=== PATIENT | female | born 1970 | race African-American/Black ===

== ENCOUNTER 2021-05-28 11:55 | Emergency (ER) | payer MEDICARE, OTHER, SELFPAY ==
[~2021-05-28] VITALS: Ht 180.3 cm; Wt 139.7 kg
[~2021-05-28 11:55] MED LIST: BUPR300T55 PO; CLONIPIN PO; DEPAKOTE PO; GEODON PO; OLAN15TA3 PO
[2021-05-28 12:00] VITALS: BP_SYST 128
[2021-05-28] MEDS ORDERED: LORazepam 2 MG/ML VIAL IVP ONE (12:30)
[2021-05-28] MEDS ORDERED: NACL 0.9% 1,000 ML IV ONE ×2 (12:30→13:45)
[2021-05-28] MEDS ORDERED: ACETAMINOPHEN 325 MG TABLET PO ONE (13:00)
[2021-05-28 13:12] LABS: BASOPHILS % (AUTO) 0.6 % (0.0-2.0); EOSINOPHILS % (AUTO) 0.9 % (0.0-4.0); HEMATOCRIT 38.9 % (36-48); HEMOGLOBIN 13.1 g/dL (12.0-16.0); LYMPHOCYTES # (AUTO) 1.1 K/uL (1.0-5.5); LYMPHOCYTES % (AUTO) 22.2 % (20.5-51.5); MEAN CORPUSCULAR HEMOGLOBIN 30 pg (27-31); MEAN CORPUSCULAR HGB CONC 34 % (32-36); MEAN CORPUSCULAR VOLUME 90 fL (79.0-98.0); MONOCYTES # (AUTO) 0.3 K/uL (0.0-1.0); MONOCYTES % (AUTO) 5.4 % (1.7-9.3); NEUTROPHILS # (AUTO) 3.5 K/uL (1.8-7.7); NEUTROPHILS % (AUTO) 70.9 % (40.0-70.0); PLATELET COUNT (AUTO) 228 K/uL (130-430); RED BLOOD CELL COUNT(AUTO) 4.32 MIL/uL (4.2-6.2); RED CELL DISTRIBUTION WIDTH 14.4 % (9.0-15.0)
[2021-05-28 13:15] LABS: BILIRUBIN,URINE NEGATIVE (NEGATIVE); BLOOD, URINE 1+ (NEGATIVE); CLARITY/URINE SL CLOUDY (CLEAR); COLOR,URINE YELLOW (YELLOW); GLUCOSE,URINE NEGATIVE (NEGATIVE); KETONES,URINE TRACE (NEGATIVE); LEUKOCYTE ESTERASE ,URINE NEGATIVE (NEGATIVE); NITRITE, URINE NEGATIVE (NEGATIVE); PROTEIN URINE NEGATIVE (NEGATIVE); UROBILINOGEN,URINE 0.2 (0.2-1.0)
[2021-05-28 13:16] LABS: ANION GAP 12 (5-15); CALCIUM 9.1 mg/dL (8.4-11.0); CHLORIDE 105 mmol/L (98-107); CREATININE 1.34 mg/dL (0.55-1.30); GLUCOSE 135 mg/dL (70-99); POTASSIUM 3.7 mmol/L (3.5-5.1); SODIUM SERUM 140 mmol/L (136-145); UREA NITROGEN, BLOOD 10 mg/dL (8-21)
[2021-05-28 13:20] LABS: GFR AFRICAN AMERICAN 54 mL/min (>90)
[2021-05-28 13:21] LABS: ACETAMINOPHEN < 1 ug/mL (1-30)
[2021-05-28 13:22] LABS: ALANINE AMINOTRANSFERASE 15 U/L (12-78); ALBUMIN 3.5 g/dL (3.4-4.8); ASPARTATE AMINOTRANSFERASE 18 U/L (10-37); TOTAL BILIRUBIN 0.3 mg/dL (0.0-1.0)
[2021-05-28 13:23] LABS: ALCOHOL, BLOOD < 3 mg/dL (<10)
[2021-05-28 13:28] LABS: BARBITURATE, URINE NEGATIVE (NEG <=200); BENZODIAZEPINE, URINE POSITIVE (NEG <=150); CANNABINOID, URINE NEGATIVE (NEG <=50); COCAINE, URINE NEGATIVE (NEG <=150); METHAMPHETAMINES SCREEN,URINE NEGATIVE (NEG <=500); OPIATE, URINE NEGATIVE (NEG <=100); PHENCYCLIDINE SCREEN,URINE NEGATIVE (NEG <=25); UR TRICYCLIC ANTIDEPRESSANTS NEGATIVE (NEG <=300); URINE AMPHETAMINE NEGATIVE (NEG <=500); URINE METHADONE NEGATIVE (NEG <=200); URINE OXYCODONE SCREEN NEGATIVE (NEG <=100); URINE PROPOXYPHENE SCREEN NEGATIVE (NEG <=300)
[2021-05-28 13:35] LABS: BACTERIA,URINE FEW /HPF (None Seen); WBC,URINE 0-3 /HPF (0-3)
[2021-05-28 13:46] LABS: CKMB RELATIVE INDEX 0.4 (0.0-2.9); CREATINE KINASE MB 1.1 ng/mL (0-3.6)
[2021-05-28] MEDS ORDERED: IBUP-1969 PO (15:04)
[2021-05-28 15:55] VITALS: BP_SYST 128
== END 2021-05-28 15:55 | disposition home or self-care (01) ==
LOC: SED 11:55
DX: F41.9 Anxiety disorder, unspecified (principal); R00.0 Tachycardia, unspecified; I10 Essential (primary) hypertension; F32.9 Major depressive disorder, single episode, unspecified; F20.9 Schizophrenia, unspecified; Z79.899 Other long term (current) drug therapy; Z20.822 Contact with and (suspected) exposure to COVID-19
CPT/HCPCS: 36415; 71045; 80053; 80307; 81000; 82550; 82553; 83605; 84484; 85025; 87040; 87426; 93005; 96361; 96374; 99285; G0480; J2060; J7030; G0481; G0482

== ENCOUNTER 2022-11-02 17:05 | Emergency (ER) | payer MEDICARE, OTHER ==
[~2022-11-02] VITALS: Ht 180.3 cm; Wt 126.1 kg
[~2022-11-02 17:05] MED LIST changes: +IBUP-1969 PO
[2022-11-02 17:21] VITALS: BP_SYST 142
[2022-11-02] MEDS ORDERED: FLOEARD EACH EYE (19:53)
[2022-11-02] MEDS ORDERED: CLOT24CR2 TP (19:53)
[2022-11-02] MEDS ORDERED: FLUT16SP16 NS (19:53)
--- NOTE | 2022-11-02 20:03 | NUR ---
Patient given written and verbal discharge instructions and verbalizes understanding. ER MD Licea discussed with patient the results and treatment provided. Patient in stable condition. ID arm band removed. Rx's sent to preferred pharmacy. Patient educated on pain management and to follow up with PMD. Pain Scale 0/10. Opportunity for questions provided and answered. Medication side effect fact sheet provided.
[2022-11-02] MEDS ORDERED: NITR-85 PO (20:04)
[2022-11-02 20:05] VITALS: BP_SYST 142
--- NOTE | 2022-11-03 00:11 | NUR ---
Note undone in EDM - 11/03/22 at 0012 by [email or web address] Patient given written and verbal discharge instructions and verbalizes understanding. ER MD Licea discussed with patient the results and treatment provided. Patient in stable condition. ID arm band removed. Rx's sent to preferred pharmacy. Patient educated on pain management and to follow up with PMD. Pain Scale 0/10 Opportunity for questions provided and answered. Medication side effect fact sheet provided.
== END 2022-11-02 20:03 | disposition home or self-care (01) ==
LOC: SED 17:05
DX: J01.90 Acute sinusitis, unspecified (principal); R09.81 Nasal congestion; R30.0 Dysuria; I10 Essential (primary) hypertension; Z79.899 Other long term (current) drug therapy
CPT/HCPCS: 81025; 99283

== ENCOUNTER 2023-08-05 19:14 | Emergency (ER) | payer MEDICARE, OTHER ==
[~2023-08-05] VITALS: Ht 180.3 cm; Wt 131.1 kg
[~2023-08-05 19:14] MED LIST changes: +CLOT24CR2 TP; +FLOEARD EACH EYE; +FLUT16SP16 NS; +NITR-85 PO
[2023-08-05 19:30] VITALS: BP_SYST 148; PULSE 90; RESP 16; TEMP 97.9; O2SAT 96
[2023-08-05 21:20] LABS: BILIRUBIN,URINE NEGATIVE (NEGATIVE); BLOOD, URINE NEGATIVE (NEGATIVE); CLARITY/URINE Clear (CLEAR); COLOR,URINE YELLOW (YELLOW); GLUCOSE,URINE NEGATIVE (NEGATIVE); KETONES,URINE NEGATIVE (NEGATIVE); LEUKOCYTE ESTERASE ,URINE NEGATIVE (NEGATIVE); NITRITE, URINE NEGATIVE (NEGATIVE); PROTEIN URINE NEGATIVE (NEGATIVE); UROBILINOGEN,URINE 0.2 (0.2-1.0)
[2023-08-05] MEDS ORDERED: DIF100 PO (22:41)
[2023-08-05] MEDS ORDERED: NITR-85 PO (22:41)
[2023-08-05 23:00] VITALS: BP_SYST 145; PULSE 85; RESP 16; TEMP 97.3; O2SAT 100
== END 2023-08-05 22:59 | disposition home or self-care (01) ==
LOC: SED 19:14
DX: N39.0 Urinary tract infection, site not specified (principal); R30.9 Painful micturition, unspecified; R10.30 Lower abdominal pain, unspecified; I10 Essential (primary) hypertension; Z79.899 Other long term (current) drug therapy
CPT/HCPCS: 81003; 99283

== ENCOUNTER 2023-11-14 17:08 | Inpatient (IN) | payer MEDICARE, OTHER ==
[~2023-11-14] VITALS: Ht 170.2 cm; Wt 162.6 kg
[~2023-11-14 17:08] MED LIST changes: +DIF100 PO
[2023-11-14 17:18] VITALS: BP_SYST 117; PULSE 101; RESP 20; TEMP 98.1; O2SAT 95
[2023-11-14] MEDS ORDERED: IPRATROPIUM/ALBUTEROL SULFATE 3 ML AMPUL.NEB (DUONEB) INH ONE (20:00)
[2023-11-14] MEDS ORDERED: methylPREDNISolone SOD SUCC/PF 62.5 MG/ML VIAL IM ONE (20:00)
[2023-11-14 21:07] LABS: BASOPHILS % (AUTO) 0.7 % (0.0-2.0); EOSINOPHILS # (AUTO) 0.4 K/uL (0.0-0.4); EOSINOPHILS % (AUTO) 6.3 % (0.0-4.0); HEMATOCRIT 37.4 % (36-48); HEMOGLOBIN 12.5 g/dL (12.0-16.0); LYMPHOCYTES # (AUTO) 1.7 K/uL (1.0-5.5); LYMPHOCYTES % (AUTO) 26.1 % (20.5-51.5); MEAN CORPUSCULAR HEMOGLOBIN 30 pg (27-31); MEAN CORPUSCULAR HGB CONC 34 % (32-36); MEAN CORPUSCULAR VOLUME 90 fL (79.0-98.0); MONOCYTES # (AUTO) 0.4 K/uL (0.0-1.0); MONOCYTES % (AUTO) 6.2 % (1.7-9.3); NEUTROPHILS # (AUTO) 3.9 K/uL (1.8-7.7); NEUTROPHILS % (AUTO) 60.7 % (40.0-70.0); PLATELET COUNT (AUTO) 245 K/uL (130-430); RED BLOOD CELL COUNT(AUTO) 4.16 MIL/uL (4.2-6.2); RED CELL DISTRIBUTION WIDTH 15.9 % (9.0-15.0); WHITE BLOOD COUNT (AUTO) 6.5 K/uL (4.8-10.8)
[2023-11-14 21:13] LABS: PROTHROMBIN TIME 10.5 SECS (9.5-12.5)
[2023-11-14 21:14] LABS: ANION GAP 9 (5-15); CALCIUM 9.6 mg/dL (8.4-11.0); CARBON DIOXIDE 27 mmol/L (23-29); CHLORIDE 102 mmol/L (98-107); CREATININE 1.05 mg/dL (0.55-1.30); GFR AFRICAN AMERICAN 70 mL/min (>90); GFR NON AFRICAN-AMERICAN 58 mL/min (>90); GLUCOSE 100 mg/dL (74-106); POTASSIUM 3.7 mmol/L (3.5-5.1); SODIUM SERUM 138 mmol/L (136-145); UREA NITROGEN, BLOOD 13 mg/dL (8-21)
[2023-11-14 21:16] LABS: BILIRUBIN,URINE NEGATIVE (NEGATIVE); BLOOD, URINE NEGATIVE (NEGATIVE); CLARITY/URINE CLEAR (CLEAR); COLOR,URINE YELLOW (YELLOW); GLUCOSE,URINE NEGATIVE (NEGATIVE); KETONES,URINE NEGATIVE (NEGATIVE); LEUKOCYTE ESTERASE ,URINE NEGATIVE (NEGATIVE); NITRITE, URINE NEGATIVE (NEGATIVE); PH,URINE 7.5 (5.0-8.0); PROTEIN URINE NEGATIVE (NEGATIVE); UROBILINOGEN,URINE 0.2 (0.2-1.0)
[2023-11-14 21:22] LABS: LIPASE 20 U/L (16-77)
[2023-11-14] MEDS ORDERED: ASPIRIN 325 MG TABLET (ECOTRIN) PO ONE ×2 (21:45)
[2023-11-14] MEDS ORDERED: methylPREDNISolone SOD SUCC/PF 62.5 MG/ML VIAL ONE (23:14)
[2023-11-15] MEDS ORDERED: BUPR-120 PO (00:23)
[2023-11-15] MEDS ORDERED: GEO20 PO (00:23)
[2023-11-15] MEDS ORDERED: FURO-150 PO (00:23)
[2023-11-15] MEDS ORDERED: DIVA-74 PO (00:23)
[2023-11-15] MEDS ORDERED: CLON0.5T4 PO (00:23)
[2023-11-15] MEDS ORDERED: ILOP4TAB2 PO (00:23)
[2023-11-15] MEDS ORDERED: iohexoL 350 mgI/mL, 100 ML INFUS..BTL IV ONE (02:21)
[2023-11-15] MEDS ORDERED: HYDROcodone/ACETAMIN 5-325 MG TAB (NORCO/ VICODIN) PO PRN (10:00)
[2023-11-15] MEDS ORDERED: clonazePAM 0.5 MG TABLET PO PRN (10:00)
[2023-11-15] MEDS ORDERED: FUROSEMIDE 20 MG TABLET PO SCH (10:00)
[2023-11-15] MEDS ORDERED: HYDROcodone/ACETAMIN 10-325 MG TAB PO PRN (10:00)
[2023-11-15] MEDS ORDERED: NALOXONE HCL 0.4 MG/ML AMP (NARCAN) IVP PRN ×2 (10:00)
[2023-11-15] MEDS ORDERED: LORazepam 2 MG/ML VIAL IVP PRN (10:00)
[2023-11-15] MEDS ORDERED: ONDANSETRON HCL 4 MG/2 ML VIAL IVP PRN (10:00)
[2023-11-15] MEDS ORDERED: ACETAMINOPHEN 325 MG TABLET PO PRN ×2 (10:00→11:30)
[2023-11-15 10:38] LABS: BASOPHILS % (AUTO) 0.1 % (0.0-2.0); HEMATOCRIT 34.3 % (36-48); HEMOGLOBIN 11.5 g/dL (12.0-16.0); LYMPHOCYTES # (AUTO) 0.7 K/uL (1.0-5.5); LYMPHOCYTES % (AUTO) 11.2 % (20.5-51.5); MEAN CORPUSCULAR HEMOGLOBIN 30 pg (27-31); MEAN CORPUSCULAR HGB CONC 34 % (32-36); MEAN CORPUSCULAR VOLUME 89 fL (79.0-98.0); MONOCYTES # (AUTO) 0.1 K/uL (0.0-1.0); MONOCYTES % (AUTO) 2.1 % (1.7-9.3); NEUTROPHILS # (AUTO) 5.6 K/uL (1.8-7.7); NEUTROPHILS % (AUTO) 86.6 % (40.0-70.0); PLATELET COUNT (AUTO) 239 K/uL (130-430); RED BLOOD CELL COUNT(AUTO) 3.84 MIL/uL (4.2-6.2); RED CELL DISTRIBUTION WIDTH 15.6 % (9.0-15.0); WHITE BLOOD COUNT (AUTO) 6.5 K/uL (4.8-10.8)
[2023-11-15 11:00] LABS: CALCIUM 9.1 mg/dL (8.4-11.0); CREATININE 0.98 mg/dL (0.55-1.30); PHOSPHORUS 2.5 mg/dL (2.7-4.5)
[2023-11-15] MEDS ORDERED: FUROSEMIDE 20 MG TABLET PO ONE (11:30)
[2023-11-15] MEDS ORDERED: buPROPion HCL 150 MG XL TAB PO ONE (11:30)
[2023-11-15] MEDS ORDERED: FUROSEMIDE 40 MG TABLET PO ONE (11:30)
[2023-11-15] MEDS ORDERED: LOSARTAN POTASSIUM 25 MG TABLET PO ONE (11:30)
[2023-11-15] MEDS: NORMAL SALINE 5 ML DISP.SYRIN IVF SCH ×2 (14:00→22:36)
[2023-11-15] MEDS ORDERED: ILOPERIDONE PO SCH (21:00)
[2023-11-15] MEDS: NITROFURANTOIN MONOHYD/M-CRYST 100 MG CAPSULE (MacroBID) PO SCH (21:00)
[2023-11-15] MEDS: LOSARTAN POTASSIUM 25 MG TABLET PO SCH (22:34)
[2023-11-15] MEDS: DIVALPROEX SODIUM 500 MG TABLET( DEPAKOTE) PO SCH (22:35)
[2023-11-15] MEDS: ZIPRASIDONE HCL 20 MG CAPSULE (GEODON) PO SCH (22:36)
[2023-11-16] VITALS: BP_SYST 153; PULSE 74; RESP 20; TEMP 98.5; O2SAT 96
[2023-11-16] MEDS: NORMAL SALINE 5 ML DISP.SYRIN IVF SCH ×3 (06:05→20:53)
[2023-11-16 06:48] LABS: CALCIUM 8.8 mg/dL (8.4-11.0); CREATININE 1.1 mg/dL (0.55-1.30); POTASSIUM 3.6 mmol/L (3.5-5.1)
[2023-11-16 07:07] LABS: BASOPHILS % (AUTO) 0.3 % (0.0-2.0); EOSINOPHILS % (AUTO) 0.5 % (0.0-4.0); HEMATOCRIT 34.2 % (36-48); HEMOGLOBIN 11.3 g/dL (12.0-16.0); LYMPHOCYTES # (AUTO) 2.4 K/uL (1.0-5.5); LYMPHOCYTES % (AUTO) 30.6 % (20.5-51.5); MEAN CORPUSCULAR HEMOGLOBIN 30 pg (27-31); MEAN CORPUSCULAR HGB CONC 33 % (32-36); MEAN CORPUSCULAR VOLUME 90 fL (79.0-98.0); MONOCYTES # (AUTO) 0.4 K/uL (0.0-1.0); MONOCYTES % (AUTO) 4.8 % (1.7-9.3); NEUTROPHILS # (AUTO) 5.1 K/uL (1.8-7.7); NEUTROPHILS % (AUTO) 63.8 % (40.0-70.0); PLATELET COUNT (AUTO) 233 K/uL (130-430); WHITE BLOOD COUNT (AUTO) 7.9 K/uL (4.8-10.8)
[2023-11-16 08:00] VITALS: BP_SYST 120; PULSE 99; RESP 18; TEMP 96.7; O2SAT 97
[2023-11-16] MEDS: LOSARTAN POTASSIUM 25 MG TABLET PO SCH ×2 (08:42→20:52)
[2023-11-16] MEDS: FUROSEMIDE 40 MG TABLET PO SCH (08:42)
[2023-11-16] MEDS: DIVALPROEX SODIUM 500 MG TABLET( DEPAKOTE) PO SCH ×2 (08:43→20:51)
[2023-11-16] MEDS: buPROPion HCL 150 MG XL TAB PO SCH (08:43)
[2023-11-16] MEDS: NITROFURANTOIN MONOHYD/M-CRYST 100 MG CAPSULE (MacroBID) PO SCH ×2 (08:43→20:53)
[2023-11-16] MEDS: ZIPRASIDONE HCL 20 MG CAPSULE (GEODON) PO SCH ×2 (08:44→20:52)
[2023-11-16] MEDS ORDERED: LOSA-412 PO (09:33)
[2023-11-16 10:32] VITALS: O2SAT 97
[2023-11-16] MEDS ORDERED: ILOPERIDONE 4 MG PO ONE (11:30)
[2023-11-16 11:45] VITALS: BP_SYST 137; PULSE 99; RESP 19; TEMP 98.5; O2SAT 95
[2023-11-16 20:00] VITALS: BP_SYST 136; PULSE 72; RESP 18; TEMP 97.8; O2SAT 97
[2023-11-16] MEDS: ILOPERIDONE 4 MG PO SCH (20:51)
[2023-11-17] VITALS (7 sets, daily range): BP systolic 110–129; PULSE 70–118; RESP 16–18; TEMP 97.6–98.8; O2SAT 94–99
[2023-11-17] MEDS: NORMAL SALINE 5 ML DISP.SYRIN IVF SCH ×3 (05:33→21:33)
[2023-11-17 06:24] LABS: ALBUMIN 2.8 g/dL (3.4-4.8); CALCIUM 8.9 mg/dL (8.4-11.0); CREATININE 1.08 mg/dL (0.55-1.30); POTASSIUM 3.8 mmol/L (3.5-5.1); TOTAL BILIRUBIN 0.3 mg/dL (0.0-1.0); TOTAL PROTEIN, SERUM 7.8 g/dL (6.4-8.3)
[2023-11-17 06:45] LABS: BASOPHILS % (AUTO) 0.6 % (0.0-2.0); EOSINOPHILS # (AUTO) 0.3 K/uL (0.0-0.4); EOSINOPHILS % (AUTO) 4.8 % (0.0-4.0); HEMATOCRIT 33.9 % (36-48); HEMOGLOBIN 11.2 g/dL (12.0-16.0); LYMPHOCYTES # (AUTO) 2.2 K/uL (1.0-5.5); LYMPHOCYTES % (AUTO) 34.5 % (20.5-51.5); MEAN CORPUSCULAR HEMOGLOBIN 29 pg (27-31); MEAN CORPUSCULAR HGB CONC 33 % (32-36); MEAN CORPUSCULAR VOLUME 89 fL (79.0-98.0); MONOCYTES # (AUTO) 0.5 K/uL (0.0-1.0); MONOCYTES % (AUTO) 7.6 % (1.7-9.3); NEUTROPHILS # (AUTO) 3.4 K/uL (1.8-7.7); NEUTROPHILS % (AUTO) 52.5 % (40.0-70.0); PLATELET COUNT (AUTO) 227 K/uL (130-430); RED BLOOD CELL COUNT(AUTO) 3.82 MIL/uL (4.2-6.2); RED CELL DISTRIBUTION WIDTH 15.7 % (9.0-15.0); WHITE BLOOD COUNT (AUTO) 6.5 K/uL (4.8-10.8)
[2023-11-17] MEDS: ZIPRASIDONE HCL 20 MG CAPSULE (GEODON) PO SCH ×2 (08:29→21:32)
[2023-11-17] MEDS: DIVALPROEX SODIUM 500 MG TABLET( DEPAKOTE) PO SCH ×3 (08:30→21:31)
[2023-11-17] MEDS: buPROPion HCL 150 MG XL TAB PO SCH (08:30)
[2023-11-17] MEDS: ILOPERIDONE 4 MG PO SCH ×2 (08:33→21:32)
[2023-11-17] MEDS: LOSARTAN POTASSIUM 25 MG TABLET PO SCH ×2 (08:33→21:31)
[2023-11-17] MEDS: FUROSEMIDE 40 MG TABLET PO SCH (08:33)
[2023-11-17] MEDS: NITROFURANTOIN MONOHYD/M-CRYST 100 MG CAPSULE (MacroBID) PO SCH ×2 (08:34→21:32)
[2023-11-18] MEDS: NORMAL SALINE 5 ML DISP.SYRIN IVF SCH ×2 (05:33→15:08)
[2023-11-18 06:08] VITALS: BP_SYST 118; PULSE 85; RESP 20; TEMP 97.6; O2SAT 98
[2023-11-18 08:00] VITALS: O2SAT 98
[2023-11-18] MEDS: ILOPERIDONE 4 MG PO SCH (09:37)
[2023-11-18] MEDS: buPROPion HCL 150 MG XL TAB PO SCH (09:38)
[2023-11-18] MEDS: NITROFURANTOIN MONOHYD/M-CRYST 100 MG CAPSULE (MacroBID) PO SCH (09:38)
[2023-11-18] MEDS: LOSARTAN POTASSIUM 25 MG TABLET PO SCH (09:38)
[2023-11-18] MEDS: DIVALPROEX SODIUM 500 MG TABLET( DEPAKOTE) PO SCH (09:38)
[2023-11-18] MEDS: FUROSEMIDE 40 MG TABLET PO SCH (09:39)
[2023-11-18] MEDS: ZIPRASIDONE HCL 20 MG CAPSULE (GEODON) PO SCH (09:56)
[2023-11-18 11:45] VITALS: BP_SYST 138; PULSE 96; RESP 17; TEMP 98.2; O2SAT 95
[2023-11-18 14:27] VITALS: BP_SYST 136; PULSE 109; RESP 17; TEMP 98; O2SAT 98
== END 2023-11-18 15:41 | DRG 300 ==
LOC: SED 17:08 → STU 11-15 00:30 → SMU 11-17 11:03
PROVIDERS: ADMIT Preventive Medicine Preventive Medicine/Occupational Environmental Medicine; ATTEND Preventive Medicine Preventive Medicine/Occupational Environmental Medicine
DX: I87.2 Venous insufficiency (chronic) (peripheral) (principal); I24.89 Other forms of acute ischemic heart disease; N39.0 Urinary tract infection, site not specified; Z68.43 Body mass index [BMI] 50.0-59.9, adult; D64.9 Anemia, unspecified; R10.9 Unspecified abdominal pain; E66.01 Morbid (severe) obesity due to excess calories; I10 Essential (primary) hypertension; F25.9 Schizoaffective disorder, unspecified; R73.9 Hyperglycemia, unspecified; F32.A Depression, unspecified
CPT/HCPCS: 36415; 71045; 71275; 76376; 80048; 80053; 80061; 81001; 81003; 83690; 83735; 83880; 84100; 84484; 85025; 85379; 85610-TC; 85730-TC; 93005; 93306; 93970; 94640; 96372; 99285; G0378; J2930; Q9967